=== PATIENT | male | born 1980 | race Caucasian/White ===

== ENCOUNTER 2022-06-27 10:00 | Emergency (ER) | payer OTHER ==
[2022-06-27] MEDS ORDERED: Ibuprofen 800 MG TAB ONE (10:46)
== END 2022-06-27 10:52 | disposition home or self-care (01) ==
LOC: NAV ERS 10:00
DX: S70.02XA Contusion of left hip, initial encounter (principal); F17.210 Nicotine dependence, cigarettes, uncomplicated; W01.0XXA Fall on same level from slipping, tripping and stumbling without subsequent striking against object, initial encounter; Y92.149 Unspecified place in prison as the place of occurrence of the external cause